=== PATIENT | female | born 1945 | race Caucasian/White ===

== ENCOUNTER 2020-01-30 12:52 | Outpatient (CLI) | payer MEDICARE, OTHER, SELFPAY ==
--- NOTE | ~2020-01-30 | US_ITS ---
EXAMINATION: US thyroid DATE: 01/30/2020 13:22 INDICATION: Nontoxic goiter TECHNIQUE: Multiple ultrasound images of the thyroid were obtained. COMPARISON: None. FINDINGS: The right thyroid lobe measures 4.0 x 1.4 x 1.3 cm. The left thyroid lobe measures 4.2 x 1.5 x 1.4 c m. There are 3 anechoic cystic or predominantly cystic nodules in the right thyroid lobe, the larges t measuring 6 mm with peripheral echogenic focus with posterior comet tailing consistent with inspiss ated colloid and a colloid cyst, all (TI-RADS 2, not suspicious, no FNA recommended). There are a cou ple nearly anechoic 5 mm spongiform nodules without internal echogenic foci in the left thyroid lobe, also TI-RADS 1. There is normal echotexture, echogenicity and vascular flow throughout the remainder of the thyroid gland. IMPRESSION: 1. A few bilateral likely benign <7 mm TI-RADS-1 nodules which do not require biopsy or further follo w-up. Reviewed, dictated and finalized at location A. IMPRESSION: 1. A few bilateral likely benign <7 mm TI-RADS-1 nodules which do not require b iopsy or further follow-up.
== END 2020-01-30 12:53 | disposition home or self-care (01) ==
PROVIDERS: PCP Internal Medicine; Visit Provider Internal Medicine Endocrinology, Diabetes & Metabolism
DX: E04.9 Nontoxic goiter, unspecified (principal)
CPT/HCPCS: 76536

== ENCOUNTER 2020-05-18 11:03 | Emergency (ER) | payer MEDICARE, OTHER, SELFPAY ==
--- NOTE | ~2020-05-18 | CT_ITS ---
EXAMINATION: CTA BRAIN/CAROTID DATE: 05/18/2020 14:52 INDICATION: Headache and neck pain post parathyroidectomy TECHNIQUE: Computed tomographic angiography (CTA) of the head and neck was performed with 100 mL Omni paque-350 intravenous contrast. Multiplanar reconstructions and maximum intensity projection 3D-recon structions of the carotid arteries and of the intracranial arteries were created by the technologist on a separate workstation. Precontrast CT of the head was also obtained. Automated exposure control and iterative reconstruction technique were employed.The dose-length product was 1576.83 mGy-cm. COMPARISON: None. FINDINGS: Carotid arteries: Amount of atherosclerotic calcification along the normal caliber aortic arch. There is 0% stenosis of the right carotid bulb relative to normal distal artery lumen diameter (NASCET criteria). There is 0 % stenosis of the left carotid bulb relative to normal distal artery lumen diameter. There is likely postoperative stranding in the soft tissues at the suprascapular notch along the inferior margin of t he thyroid, left greater than right. No abscess or hematoma. No pathologically enlarged cervical lymp hadenopathy. Mild emphysema at the upper lung zones. Head: No acute intracranial hemorrhage, acute infarction or abnormal extra axial fluid collection. Ventricl es are normal and symmetric. No mass/mass effect. No abnormally enhancing lesions identified. The orb its, paranasal sinuses and mastoid air cells are normal. Intracranial arteries: There is no hemodynamically significant stenosis in the vertebral, basilar and internal carotid arter ies. Left vertebral artery is mildly dominant. There are no aneurysms identified or hemodynamically s ignificant stenosis. The right A1 and bilateral P1 segments are patent. The left anterior cerebral ar lulu is supplied via the right A1 segment and a patent anterior to indicating artery. Cerebral arteri al arborization appears symmetric. IMPRESSION: 1. 0% stenosis of the right carotid bulb relative to normal distal artery lumen diameter (NASCET crit eria). 2. 0% stenosis of the left carotid bulb relative to normal distal artery lumen diameter. 3. Normal brain. No acute intracranial process. 4. No evident aneurysm or hemodynamically significant stenosis in the intracranial cerebral arteries. Reviewed, dictated and finalized at location A. IMPRESSION: 1. 0% stenosis of the right carotid bulb relative to normal distal artery lumen diameter (NASCET criteria). 2. 0% stenosis of the left carotid bulb relative to normal distal artery lumen diameter. 3. Normal brain. No acute intracranial process. 4. No evident aneurysm or hemodynamically significant stenosis in the intracran ial cerebral arteries.
[2020-05-18 11:16] VITALS: BP 120/57; PULSE 74; RESP 16; TEMP 36.1; O2SAT 97
--- NOTE | 2020-05-18 13:39 | ECG_ITS ---
Measurements Intervals [place] Rate: 65 P: 63 VA: 140 QRS: 62 QRSD: 89 T: 64 QT: 379 QTc: 394 Interpretive Statements SINUS RHYTHM LEFT ATRIAL ENLARGEMENT INCOMPLETE RIGHT BUNDLE BRANCH BLOCK BORDERLINE ECG Electronically Signed On 05-18-2020 14:35:11 CDT by Itz Kenney D.O.
--- NOTE | 2020-05-18 13:49 | ED.GENADULT ---
HPI - General Adult General Chief complaint: Neck Pain/Injury Stated complaint: headache, neck ache Time Seen by Provider: 05/18/20 13:11 Source: patient and family History of Present Illness HPI narrative: 74 years old white female, history of depression, anxiety hypothyroidism, status post parathyroidectomy 2 weeks ago presents with nontraumatic neck pain and stiffness started at the base of the neck all the way up to the whole head including eyes, ears and face. Started 2 days ago. Patient woke up with the symptoms 2 days ago, denies any trauma, new bed, new activity, new pillow or similar symptoms. Patient denies any fever, chills, nausea, vomiting, difficulty swallowing or breathing. Patient denies any aggravating or relieving factors, patient unable to turn her head to any directions. Related Data Home Medications Medication Instructions Recorded Confirmed bupropion HCl mg PO 05/18/20 donepezil mg 05/18/20 duloxetine mg PO 05/18/20 fentanyl 05/18/20 fluticasone propionate INTRANASAL 05/18/20 furosemide 05/18/20 hydrocodone-acetaminophen 05/18/20 levothyroxine 05/18/20 tolterodine mg PO 05/18/20 Allergies Allergy/AdvReac Type Severity Reaction Status Date / Time No Known Allergies Allergy Verified 05/18/20 11:24 Review of Systems Review of Systems: Narrative: CONSTITUTIONAL: Denies fever, chills, or sweats. EYES: Denies visual changes, redness, or discharge. ENT: Denies rhinorrhea, congestion, sore throat, or otalgia. CARDIOVASCULAR: Denies chest pain, palpitations, or edema. RESPIRATORY: Denies cough or dyspnea. GASTROINTESTINAL: Denies abdominal pain, nausea, vomiting, or diarrhea. GENITOURINARY: Denies dysuria or hematuria. SKIN: Denies rash or itching. MUSCULOSKELETAL: Denies back pain, joint pain, or myalgia. NEUROLOGIC: Denies headache, numbness, or weakness. PSYCHIATRIC: Denies anxiety or depression. [facility] Past Medical History Medical History Hypothyroid Surgical History Surgical History Surgical history unknown Social History Social History Gender identity (if verbalized by the patient): Female Exam Narrative: Exam Narrative: General appearance: Well-developed, well-nourished Skin: Normal color Head: Normocephalic, nontraumatic Eyes: Clear conjunctiva ENT: Oropharynx normal, ears normal, nose normal Neck: Generalized stiffness, no tenderness, no swelling, no mass, no lymphadenopathy, no rash, anteriorly surgical scar which is dry and clean. Chest and respiratory: Airway patent, no respiratory distress, no accessory muscle use Heart: Regular rate/rhythm Abdomen: Soft, nontender, no organomegaly, quiet bowel sounds Vascular: Normal peripheral pulses, normal capillary refill. Musculoskeletal: Normal range of motion, nontender back. Severe limited range of motion of the neck to all directions. Neurologic: Alert and oriented ?3, [employer] is normal as tested, no gross motor deficit Course Course Emergency Course: Stable Vital Signs Vital signs: Vital Signs Temperature 36.1 C L 05/18/20 11:16 Pulse Rate 74 05/18/20 11:16 Respiratory Rate 16 05/18/20 11:16 Blood Pressure 120/57 L 05/18/20 11:16 Pulse Oximetry 97 05/18/20 11:16 Temperature 36.1 C L 05/18/20 11:16 Pulse Rate 66 05/18/20 16:06 Respiratory Rate 17 05/18/20 16:06 Blood Pressure 135/64 05/18/20 16:06 Pulse Oximetry 97 05/18/20 16:06 Medical Decision Making MDM Narrative Medical decision making narrative: Neck muscular strain/sprain is my concern. Pat
[2020-05-18 14:02] VITALS: BP 132/66; PULSE 76; RESP 17; O2SAT 97
[2020-05-18] MEDS: ONDANSETRON INJ 4 MG/2 ML VIAL IV PUSH (14:02)
[2020-05-18] MEDS: MORPHINE SULFATE 4 MG/ML INJ IV PUSH (14:02)
[2020-05-18 14:17] LABS: Basophils Percent Auto 0.2 % (0.2-1.2); Eosinophils Absolute Auto 0.1 K/mm3 (0-0.3); Eosinophils Percent Auto 0.7 % (0-4.4); Hematocrit 44.7 % (37.0-47.0); Hemoglobin 14.6 g/dL (12.0-15.0); Immature Granulocyte Absolute 0.02 K/mm3 (0.00-0.031); Immature Granulocyte Percent A 0.2 % (0-0.5); Lymphocytes Absolute Auto 1.01 K/mm3 (0.9-3.2); Lymphocytes Percent Auto 12.3 % (18.3-44.2); Mean Corpuscular HGB Conc 32.7 g/dl (32-36); Mean Corpuscular Hemoglobin 31.5 pg (26-34); Mean Corpuscular Volume 96.3 fl (80-100); Mean Platelet Volume 8.8 fl (7.4-10.4); Monocytes Absolute Auto 0.7 K/mm3 (0.1-0.6); Monocytes Percent Auto 7.9 % (2.6-8.5); Neutrophils Absolute Auto 6.5 K/mm3 (1.3-6.7); Neutrophils Percent Auto 78.7 % (45.5-73.1); Platelet Count Result 200 k/mm3 (150-375); Red Blood Count 4.64 M/mm3 (4.2-5.4); Red Cell Distribution Width 12.6 % (11.5-14.5); White Blood Count 8.2 K/mm3 (4.5-10.0)
[2020-05-18 14:29] LABS: Alanine Aminotransferase 16 U/L (4-35); Alkaline Phosphatase 99 U/L (38-126); Aspartate Amino Transferase 28 U/L (14-36); Bilirubin,Total 0.4 mg/dL (0.2-1.3); Blood Urea Nitrogen 15 mg/dL (7-17); Calcium 8.7 mg/dL (8.4-10.2); Carbon Dioxide 29 mmol/L (22-30); Chloride 101 mmol/L (98-107); Estimated CRCL calculation 69 ml/min; Estimated Glomerular Filt Rate > 60; Glucose 111 mg/dL (65-105); Potassium 4.6 mmol/L (3.4-5.0); Sodium 135 mmol/L (137-145)
[2020-05-18 14:32] LABS: CRP 3.6 mg/dL (<1.0)
[2020-05-18 14:42] LABS: Erythrocyte Sedimentation Rate 18 mm/hr (0-20)
[2020-05-18 14:59] LABS: Thyroid Stimulating Hormone 0.951 uIU/mL (0.465-4.680)
[2020-05-18 16:06] VITALS: BP 135/64; PULSE 66; RESP 17; O2SAT 97
== END 2020-05-18 16:50 | disposition home or self-care (01) ==
PROVIDERS: Emergency Provider Emergency Medicine; PCP Internal Medicine
DX: M54.2 Cervicalgia (principal); E03.9 Hypothyroidism, unspecified; F41.9 Anxiety disorder, unspecified; F32.9 Major depressive disorder, single episode, unspecified; E89.2 Postprocedural hypoparathyroidism
CPT/HCPCS: 36415; 70496; 70498; 80053; 84443; 85025; 85652; 86140; 93005; 96374; 96375; 99284; J2270; J2405; Q9967

== ENCOUNTER 2021-09-28 13:03 | Outpatient (CLI) | payer MEDICARE, OTHER, SELFPAY ==
--- NOTE | ~2021-09-28 | MM_ITS ---
EXAMINATION: MM diag stephanie implant BI w paco HISTORY: Palpable lumps of the outer right breast after fall 2-3 months ago TECHNIQUE: Craniocaudal, mediolateral, and mediolateral oblique 3-D tomosynthesis images with implant displacement of the breasts were performed and synthetic 2-D images were generated. Craniocaudal, m ediolateral oblique, and mediolateral views of the breasts without implant displacement were obtained using full field digital mammography. CAD analysis was submitted and interpreted. COMPARISON: 11/19/2019, 09/18/2018, 02/12/2017, 11/02/2016, 10/26/2016 BREAST PARENCHYMAL COMPOSITION: There are scattered areas of fibroglandular density. FINDINGS: Right breast: There are innumerable new small high density masses throughout the upper outer right br east which are consistent with extravasated silicone. No definite suspicious mass, calcification, or architectural distortion are identified. There is a chronic rupture of the inferior aspect of the rig ht breast implant. Left breast: There is no evidence of suspicious mass, calcification, or architectural distortion to suggest malignancy. There has been no suspicious interval change. IMPRESSION: 1. Findings consistent with right breast implant rupture and innumerable foci of extravasated silicon e throughout the upper outer right breast accounting for the palpable abnormality. Clinical follow-up is recommended. 2. Recommend routine screening mammography in one year. BI-RADS Category 2: Benign finding(s). Reviewed, dictated and finalized at location A. TER HELPER IMPRESSION: 1. Findings consistent with right breast implant rupture and innumerable foci o f extravasated silicone throughout the upper outer right breast accounting for the palpable abnormality. Clinical follow-up is recommended. 2. Recommend routine screening mammography in one year. BI-RADS Category 2: Benign finding(s).
== END 2021-09-28 13:04 | disposition home or self-care (01) ==
LOC: ANHIMG 13:07
PROVIDERS: PCP Internal Medicine; Visit Provider Physician Assistant
DX: N63.10 Unspecified lump in the right breast, unspecified quadrant (principal); Z98.82 Breast implant status
CPT/HCPCS: 77062; 77066; G0279

== ENCOUNTER 2022-06-20 20:06 | Observation (INO) | payer MEDICARE, OTHER, SELFPAY ==
--- NOTE | ~2022-06-20 | CT_ITS ---
EXAMINATION: CT abdomen pelvis w con DATE: 06/20/2022 23:12 INDICATION: Right posterior chest and back pain. Right hip pain. TECHNIQUE: Computed tomography (CT) of the abdomen and pelvis was performed with 100 mL Omnipaque 350 intravenous contrast. Automated exposure control and iterative reconstruction technique were employe d. The dose-length product was 794.17 mGy-cm. COMPARISON: None. FINDINGS: The visualized portions of the lung bases demonstrate mild atelectasis. No pleural effusion . Partially visualized are breast implants. The heart size is normal. No pericardial effusion. There are cysts in the liver measuring up to 7 mm. There are changes of cholecystectomy. The spleen, pancre as, adrenal glands, and left kidney are normal. There are cysts in right kidney measuring up to 4 mm. There is diverticulosis of the colon without evidence of diverticulitis. There are no dilated loops of bowel. The appendix is normal. There are no pathologically enlarged lymph nodes. There is no free intraperitoneal fluid. There is severe lumbar spondylosis and mild thoracic spondylosis. There is mod erate osteoarthritis of the hips. There is a nondisplaced fracture involving right parasymphyseal pub is and right superior and inferior pubic rami. There are fractures of right 11th and 12th ribs. IMPRESSION: 1. Nondisplaced comminuted fracture involving right parasymphyseal pubis and right superior and infer ior pubic rami. 2. Fractures of right 11th and 12th ribs. Reviewed, dictated and finalized at location A. IMPRESSION: 1. Nondisplaced comminuted fracture involving right parasymphyseal pubis and ri ght superior and inferior pubic rami. 2. Fractures of right 11th and 12th ribs.
--- NOTE | ~2022-06-20 | CT_ITS ---
EXAMINATION: CT cervical spine wo con DATE: 06/20/2022 23:06 INDICATION: Head injury. TECHNIQUE: Computed tomography (CT) of the cervical spine was performed without intravenous contrast. Automated exposure control and iterative reconstruction technique were employed. The dose-length pro duct was 458.49 mGy-cm. COMPARISON: CT cervical spine 11/25/2019 FINDINGS: There is 3 degrees dextrocurvature of cervical spine. There is mild chronic height loss of C7 vertebral body. There is mildly decreased disc height at C2-C3, moderately decreased disc height a t C3-C4, and severely decreased disc height from C4-C5 through C6-C7 with endplate remodeling. The fo llowing disc levels are specifically discussed: C2-C3: There is mild bilateral uncovertebral joint osteoarthritis. There is mild bilateral facet join t osteoarthritis. There is no neural foraminal stenosis. There is no central canal stenosis. C3-C4: There is severe bilateral uncovertebral joint osteoarthritis. There is mild right and moderate left facet joint osteoarthritis. There is mild bilateral neural foraminal stenosis. There is mild ce ntral canal stenosis. C4-C5: There is severe bilateral uncovertebral joint osteoarthritis. There is mild right and moderate left facet joint osteoarthritis. There is mild bilateral neural foraminal stenosis. There is mild ce ntral canal stenosis. C5-C6: There is severe bilateral uncovertebral joint osteoarthritis. There is mild bilateral facet rambo int osteoarthritis. There is mild bilateral neural foraminal stenosis. There is mild central canal st enosis. C6-C7: There is severe bilateral uncovertebral joint osteoarthritis. There is severe bilateral facet joint osteoarthritis. There is mild left neural foraminal stenosis. There is mild central canal steno sis. C7-T1: There is no uncovertebral joint osteoarthritis. There is mild bilateral facet joint osteoarthr itis. There is no neural foraminal stenosis. There is no central canal stenosis. IMPRESSION: 1. No fracture. 2. Severe cervical spondylosis. Reviewed, dictated and finalized at location A.
--- NOTE | ~2022-06-20 | CT_ITS ---
EXAMINATION: CT brain wo con DATE: 06/20/2022 23:05 INDICATION: Head injury. TECHNIQUE: Computed tomography (CT) of the head was performed without intravenous contrast. The mA wa s adjusted according to patient size. Iterative reconstruction technique was employed. The dose-lengt h product was 605.33 mGy-cm. COMPARISON: Head CT 05/18/2020 FINDINGS: There is no intracranial hemorrhage, acute infarction, or abnormal intracranial mass lesion . There are scattered areas of low attenuation in the cerebral white matter, which is within normal l imits for the patient's age. The ventricles are normal in size. There are likely changes of ocular le ns replacement surgeries. There is mild mucosal thickening in the ethmoid sinuses. The mastoid air ce lls are normal. IMPRESSION: 1. Normal aging brain. Reviewed, dictated and finalized at location A. IMPRESSION: 1. Normal aging brain.
[2022-06-20 20:27] VITALS: BP 120/62; PULSE 65; RESP 16; TEMP 36.6; O2SAT 98
[2022-06-20 22:30] VITALS: BP 113/70; PULSE 67; RESP 15; O2SAT 100
--- NOTE | 2022-06-20 22:34 | ED.FALL ---
HPI - Fall General Chief Complaint: Fall Stated Complaint: fall, back and leg pain Time Seen by Provider: 06/20/22 22:10 Source: patient Mode of arrival: EMS Limitations: no limitations History of Present Illness HPI Narrative: Patient is a 77 y/o female who presents to the ED via EMS with c/o fall. Patient reports she was walking with her nephew earlier today when she tripped over the edge of the sidewalk, falling onto her right side, hitting her head on the ground. She is sustained a small laceration to her right outer eyebrow, denied LOC. No prodromal symptoms. No dizziness, lightheadedness, vision changes, chest pain, difficulty breathing, abdominal pain, N/V. Patient reports pain to her right inner groin/pelvic region and right mid back, along her posterior rib cage. She was able to ambulate initially after the fall, but reported she was shuffling. Pain became more severe and she had more difficulty with ROM/ambulation, which prompted her presentation. She has not taken anything for pain. Tetanus status unknown. Patient takes aspirin 81 mg daily, no other blood thinners. Related Data Home Medications Medication Instructions Recorded Confirmed bupropion HCl 300 mg 24 hr tablet, mg PO 05/18/20 extended release donepezil 10 mg tablet mg 05/18/20 duloxetine 60 mg capsule,delayed mg PO 05/18/20 release fluticasone propionate 50 intranasal 05/18/20 mcg/actuation nasal spray,suspension tolterodine 2 mg capsule,extended mg PO 05/18/20 release 24 hr dextroamphetamine-amphetamine ER 10 mg PO DAILY 06/21/22 06/21/22 10 mg 24hr capsule,extend release ezetimibe 10 mg tablet 10 mg PO DAILY 06/21/22 06/21/22 levothyroxine 50 mcg tablet 50 mcg PO 0600 06/21/22 06/21/22 (Synthroid) liothyronine 5 mcg tablet 5 mcg PO 0600 06/21/22 06/21/22 metformin 500 mg tablet,extended 500 mg PO DAILY 06/21/22 06/21/22 release 24 hr rosuvastatin 5 mg tablet 5 mg PO DAILY 06/21/22 06/21/22 topiramate 25 mg tablet 25 mg PO DAILY 06/21/22 06/21/22 Allergies Allergy/AdvReac Type Severity Reaction Status Date / Time No Known Allergies Allergy Verified 06/20/22 22:29 Review of Systems Review of Systems: CONSTITUTIONAL: Denies fever, chills, or sweats. EYES: Denies visual changes. CARDIOVASCULAR: Denies chest pain. RESPIRATORY: Denies dyspnea. GASTROINTESTINAL: Denies abdominal pain, nausea, vomiting. SKIN: Reports laceration to right outer eyebrow. MUSCULOSKELETAL: Reports pain to R inner groin/pelvis, R mid/lower back/ribs. NEUROLOGIC: Reports HI. Denies LOC, dizziness, lightheadedness, headache, numbness, or weakness. All systems reviewed & are unremarkable except as noted in HPI and below PMFSH Past Medical History Medical History (Updated 06/21/22 @ 03:09 by Stephanie Stovall PA-C) ADHD Depression Diabetes HLD (hyperlipidemia) HTN (hypertension) Hypothyroid Surgical History Surgical History (Updated 06/21/22 @ 03:03 by Stephanie Stovall PA-C) History of breast augmentation Social History Social History (Updated 06/20/22 @ 22:41 by Stephanie Stovall PA-C) Smoking status: Never smoker Second hand tobacco smoke exposure: No Alcohol intake: never Substance use: never Gender identity (if verbalized by the patient): Female Spiritual care concerns: No Exam Narrative: GENERAL: Elderly, well-nourished, non-toxic, in no acute distress. HEAD: Normocephalic, atraumatic. EYES: PERRL/EOMI, conjunctivae clear bilaterally. NECK: Supple. No adenopathy, no masses. No cervical midline spinal tenderness. RESPIRATORY: Airway patent, respirations nonlabored. Clear to auscultation bilaterally, no rales, rhonchi, wheezing. CARDIOVASCULAR: Regular rate and rhythm without murmurs, rubs, or gallops. Peripheral pulses 2+ and equal bilaterally. ABDOMINAL: Soft, nontender, nondistended, no hepatosplenomegaly. Normoactive BS. MUSCULOSKELETAL: Limited range of motion of right hip flexion and extension due to pain.
[2022-06-20] MEDS: ONDANSETRON INJ 4 MG/2 ML VIAL IV PUSH (22:44)
[2022-06-20] MEDS: MORPHINE SULFATE (*CRX) 2 MG/ML INJ IV PUSH (22:44)
[2022-06-20] MEDS: TETANUS,DIPHTHERIA,AC PERTUSSIS ADULT (0.5 ML) BOOSTRIX IM (22:45)
[2022-06-20 22:46] LABS: Basophils Percent Auto 0.4 % (0.2-1.2); Eosinophils Absolute Auto 0.1 K/mm3 (0-0.3); Eosinophils Percent Auto 0.7 % (0-4.4); Hematocrit 42.4 % (37.0-47.0); Hemoglobin 13.5 g/dL (12.0-15.0); Immature Granulocyte Absolute 0.05 K/mm3 (0.00-0.031); Immature Granulocyte Percent A 0.4 % (0-0.5); Lymphocytes Percent Auto 9.8 % (18.3-44.2); Mean Corpuscular HGB Conc 31.8 g/dl (32-36); Mean Corpuscular Hemoglobin 31.3 pg (26-34); Mean Corpuscular Volume 98.4 fl (80-100); Mean Platelet Volume 9.2 fl (7.4-10.4); Monocytes Absolute Auto 0.6 K/mm3 (0.1-0.6); Monocytes Percent Auto 5.5 % (2.6-8.5); Neutrophils Absolute Auto 9.3 K/mm3 (1.3-6.7); Neutrophils Percent Auto 83.2 % (45.5-73.1); Platelet Count Result 212 k/mm3 (150-375); Red Blood Count 4.31 M/mm3 (4.2-5.4); Red Cell Distribution Width 13.3 % (11.5-14.5); White Blood Count 11.2 K/mm3 (4.5-10.0)
[2022-06-20 22:53] LABS: Alanine Aminotransferase 19 U/L (6-35); Albumin Level 4.2 g/dL (3.5-5.1); Alkaline Phosphatase 78 U/L (38-126); Anion Gap 8 mmol/L (8-16); Aspartate Amino Transferase 28 U/L (14-36); Bilirubin,Total 0.4 mg/dL (0.2-1.3); Blood Urea Nitrogen 26 mg/dL (7-17); Calcium 8.9 mg/dL (8.4-10.2); Carbon Dioxide 28 mmol/L (22-30); Chloride 102 mmol/L (98-107); Estimated CRCL calculation 46 ml/min; Estimated Glomerular Filt Rate > 60; Glucose 106 mg/dL (65-110); Potassium 4.1 mmol/L (3.4-5.0); Sodium 138 mmol/L (137-145)
[2022-06-20 23:16] VITALS: BP 137/73; O2SAT 100
[2022-06-20 23:17] VITALS: O2SAT 100
[2022-06-20 23:41] VITALS: O2SAT 90
[2022-06-21] VITALS (16 sets, daily range): BP systolic 101–126; BP diastolic 48–69; PULSE 63–72; RESP 12–20; TEMP 36.1–36.4; O2SAT 94–100; BMI 26.4
[2022-06-21 01:39] LABS: SARS-CoV-2 RNA PCR Negative
[2022-06-21] MEDS: MORPHINE SULFATE (*CRX) 2 MG/ML INJ IV PUSH (01:47)
--- NOTE | 2022-06-21 07:51 | PCOTNOTE ---
Pt. awaiting ortho consult. Will follow.
--- NOTE | 2022-06-21 08:50 | PM.IMHP ---
H&P: HPI History of Present Illness Date/Time: 06/21/22 08:30 Chief Complaint: Ground level Fall Narrative: This very pleasant 77 year old female patient With significant past medical history of ADHD, depression, hypertension, hyperlipidemia, hypothyroidism and status post parathyroidectomy presented to the emergency room last night with complaints of sustaining a ground level fall and subsequent pain. She indicates that she was walking along the sidewalk with her nephew, tripped on the edge of the sidewalk and fell onto her right side. She did sustain a head injury, however did not have any loss of consciousness and since then has not had any nausea and/or vomiting. Patient also indicated pain to the right inner groin and the right midback. She was brought to the emergency room where she stated she was able to stand after the fall however she was shuffling. She states this was secondary to the amount of pain that she was having. In the emergency room workup was performed and was significant for findings of multiple fractures of the right pelvis With nondisplaced, comminuted fracture of the right parasymphyseal pubis and right superior and inferior pubic rami as well as fractures of the right 11th and 12th ribs. CT of the head and C-spine were both negative for any acute findings. Her labs were unremarkable. Patient was admitted to the hospital to the hospitalist service for pain management and further management of chronic health conditions while awaiting orthopedic consult. She has a Zaidi catheter to gravity. It is draining clear yellow urine. PT and OT have been consulted and we are waiting their evaluation and orthopedic evaluation and recommendations at this time. I suspect patient will need inpatient rehabilitation at least as she lives at home with her 88-year-old spouse and she indicates she has 2 teenagers her home who have not been much help. At the time of my assessment this morning patient denies any chest pain, dyspnea except when attempting to take a deep breath when she has pain in her ribs, nausea, vomiting, diarrhea, urinary complaints, headache, lightheadedness or dizziness. She reports that her vision is normal. I reviewed the patient's home medications with her. She denies any medical history of diabetes mellitus. She indicates that her doctor placed her on metformin only because of the side effects of the drug to potentially help her lose weight. She denies ever being diagnosed with diabetes mellitus. Review of Systems Review of Systems: All systems reviewed & are unremarkable except as noted in HPI and below PMFSH Past Medical History Medical History (Updated 06/21/22 @ 09:14 by MARGARITO Toscano) ADHD Depression Diabetes HLD (hyperlipidemia) HTN (hypertension) Hypothyroid Surgical History Surgical History (Updated 06/21/22 @ 09:14 by MARGARITO Toscano) History of breast augmentation Social History Social History Smoking status: Never smoker Second hand tobacco smoke exposure: No Alcohol intake: never Substance use: never Gender identity (if verbalized by the patient): Female Spiritual care concerns: No Meds Home Medications and Allergies Home Medications Medication Instructions Recorded Confirmed Type bupropion HCl 300 mg 24 hr tablet, 300 mg PO DAILY 05/18/20 06/21/22 History extended release donepezil 10 mg tablet 10 mg PO DAILY 05/18/20 06/21/22 History duloxetine 60 mg capsule,delayed 60 mg PO DAILY 05/18/20 06/21/22 History release fluticasone propionate 50 1 spray intranasal DAILY 05/18/20 06/21/22 History mcg/actuation nasal spray,suspension meloxicam 7.5 mg tablet 7.5 mg PO DAILY #20 tabs 05/18/20 06/21/22 Rx tolterodine 2 mg capsule,extended 2 mg PO DAILY 05/18/20 06/21/22 History release 24 hr dextroamphetamine-amphetamine ER 10 mg PO DAILY 06/21/22
[2022-06-21] MEDS: MORPHINE SULFATE (*CRX) 4 MG/ML INJ IV PUSH (09:30)
[2022-06-21] MEDS: MELOXICAM 7.5 MG TABLET PO (09:56)
[2022-06-21] MEDS: ROSUVASTATIN 5 MG TABLET PO (09:56)
[2022-06-21] MEDS: buPROPion HCL XL (24 HR) 150 MG TABCR 300 MG PO (09:56)
[2022-06-21] MEDS: TOPIRAMATE 25 MG TABLET PO (09:56)
[2022-06-21] MEDS: FLUTICASONE PROPIONATE 0.05% NA SPR 16 GM BTL (*BKC) 1 SPRAY NASAL (09:57)
[2022-06-21] MEDS: LEVOTHYROXINE SODIUM 50 MCG TABLET PO (09:57)
[2022-06-21] MEDS: DULoxetine HCL 60 MG CAPSULE.DR PO (09:57)
[2022-06-21] MEDS: LIOTHYRONINE SODIUM 5 MCG TABLET PO (09:57)
[2022-06-21] MEDS: EZETIMIBE 10 MG TABLET PO (09:57)
[2022-06-21] MEDS: DONEPEZIL HCL 10 MG TABLET PO (09:57)
--- NOTE | 2022-06-21 11:40 | PM.CNOR ---
Assessment and Plan Assessment and plan (1) Multiple pelvic fractures: Qualifiers: Encounter type: initial encounter Fracture alignment: with stable disruption of pelvic ring Fracture type: closed Qualified Code(s): S32.810A - Multiple fractures of pelvis with stable disruption of pelvic ring, initial encounter for closed fracture Code(s): S32.82XA - Multiple fractures of pelvis without disruption of pelvic ring, initial encounter for closed fracture Status: Acute (2) Rib fractures: Qualifiers: Encounter type: initial encounter Fracture type: closed Laterality: right Qualified Code(s): S22.41XA - Multiple fractures of ribs, right side, initial encounter for closed fracture Code(s): S22.49XA - Multiple fractures of ribs, unspecified side, initial encounter for closed fracture Status: Acute Plan 77-year-old female with stable parasymphyseal pubis and right superior and inferior pubic rami fractures. She will likely need to use a walker for about 6-8 weeks to take stress off of the lower extremities and allow the fractures to heal. She is aware that she can be weight-bearing as tolerated. She has anti-inflammatories to take for pain but can also supplement with Tylenol as needed. Plan to see her in the office in 1 month for new x-ray. Rib fractures will be treated with supportive care and analgesics. Continue to encourage incentive spirometer usage. She seems very eager to progress with her care. She likely could go home pending PT/OT evaluation with a walker. Following. History of Present Illness HPI Consult date: 06/21/22 Chief complaint: R pelvic fractures, unable to ambulate, R rib fx Narrative: 77-year-old female with neck pain and right-sided back and pelvic pain after a ground level fall yesterday evening. CT of the head and cervical spine in the emergency room were negative for any acute findings. However, she did sustain a nondisplaced, comminuted fracture of the right parasymphyseal pubis and right superior and inferior pubic rami as well as fractures of the right 11th and 12th ribs. She denies any chest pain or shortness of breath. She is primarily dealing with pain with attempts at getting in and out of bed. Review of Systems Constitutional: Constitutional: Reports as per [facility] Past Medical History Medical History ADHD Depression Diabetes HLD (hyperlipidemia) HTN (hypertension) Hypothyroid Surgical History Surgical History History of breast augmentation Social History Social History Smoking status: Never smoker Second hand tobacco smoke exposure: No Alcohol intake: never Substance use: never Gender identity (if verbalized by the patient): Female Spiritual care concerns: No Meds Home Medications and Allergies Home Medications Medication Instructions Recorded Confirmed Type bupropion HCl 300 mg 24 hr tablet, 300 mg PO DAILY 05/18/20 06/21/22 History extended release donepezil 10 mg tablet 10 mg PO DAILY 05/18/20 06/21/22 History duloxetine 60 mg capsule,delayed 60 mg PO DAILY 05/18/20 06/21/22 History release fluticasone propionate 50 1 spray intranasal DAILY 05/18/20 06/21/22 History mcg/actuation nasal spray,suspension meloxicam 7.5 mg tablet 7.5 mg PO DAILY #20 tabs 05/18/20 06/21/22 Rx tolterodine 2 mg capsule,extended 2 mg PO DAILY 05/18/20 06/21/22 History release 24 hr dextroamphetamine-amphetamine ER 10 mg PO DAILY 06/21/22 06/21/22 History 10 mg 24hr capsule,extend release ezetimibe 10 mg tablet 10 mg PO DAILY 06/21/22 06/21/22 History levothyroxine 50 mcg tablet [place] [address]/21/22 06/21/22 History (Synthroid) liothyronine 5 mcg tablet 5 [place] [address]/21/22 06/21/22 History metformin 500 mg tablet,extended 500 mg PO
[2022-06-21] MEDS: metFORMIN HCL XR 500 MG TAB.SR.24H PO (16:39)
[2022-06-22 05:59] VITALS: BP 118/62; PULSE 77; RESP 18; TEMP 36.1; O2SAT 93
[2022-06-22] MEDS: LIOTHYRONINE SODIUM 5 MCG TABLET PO (06:00)
[2022-06-22] MEDS: LEVOTHYROXINE SODIUM 50 MCG TABLET PO (06:00)
[2022-06-22 07:12] LABS: Basophils Percent Auto 0.4 % (0.2-1.2); Eosinophils Absolute Auto 0.2 K/mm3 (0-0.3); Eosinophils Percent Auto 2.2 % (0-4.4); Hematocrit 39.6 % (37.0-47.0); Hemoglobin 12.5 g/dL (12.0-15.0); Immature Granulocyte Absolute 0.02 K/mm3 (0.00-0.031); Immature Granulocyte Percent A 0.3 % (0-0.5); Lymphocytes Absolute Auto 1.22 K/mm3 (0.9-3.2); Lymphocytes Percent Auto 16.7 % (18.3-44.2); Mean Corpuscular HGB Conc 31.6 g/dl (32-36); Mean Corpuscular Hemoglobin 31.2 pg (26-34); Mean Corpuscular Volume 98.8 fl (80-100); Mean Platelet Volume 9.5 fl (7.4-10.4); Monocytes Absolute Auto 0.7 K/mm3 (0.1-0.6); Monocytes Percent Auto 9.4 % (2.6-8.5); Neutrophils Absolute Auto 5.2 K/mm3 (1.3-6.7); Platelet Count Result 186 k/mm3 (150-375); Red Blood Count 4.01 M/mm3 (4.2-5.4); Red Cell Distribution Width 13.4 % (11.5-14.5); White Blood Count 7.3 K/mm3 (4.5-10.0)
[2022-06-22 07:21] LABS: Alanine Aminotransferase 14 U/L (6-35); Albumin Level 3.4 g/dL (3.5-5.1); Alkaline Phosphatase 66 U/L (38-126); Anion Gap 6 mmol/L (8-16); Aspartate Amino Transferase 21 U/L (14-36); Bilirubin,Total 0.3 mg/dL (0.2-1.3); Blood Urea Nitrogen 19 mg/dL (7-17); Calcium 8.5 mg/dL (8.4-10.2); Carbon Dioxide 26 mmol/L (22-30); Chloride 103 mmol/L (98-107); Estimated CRCL calculation 46 ml/min; Estimated Glomerular Filt Rate > 60; Glucose 108 mg/dL (65-110); Magnesium 2.3 mg/dL (1.6-2.3); Potassium 3.9 mmol/L (3.4-5.0); Sodium 135 mmol/L (137-145)
[2022-06-22 08:00] VITALS: O2SAT 96
[2022-06-22] MEDS: ROSUVASTATIN 5 MG TABLET PO (08:36)
[2022-06-22] MEDS: ENOXAPARIN 40 MG/0.4 ML SYRINGE SUB-Q (08:36)
[2022-06-22] MEDS: DULoxetine HCL 60 MG CAPSULE.DR PO (08:36)
[2022-06-22] MEDS: buPROPion HCL XL (24 HR) 150 MG TABCR 300 MG PO (08:36)
[2022-06-22] MEDS: EZETIMIBE 10 MG TABLET PO (08:36)
[2022-06-22] MEDS: MELOXICAM 7.5 MG TABLET PO (08:36)
[2022-06-22] MEDS: DONEPEZIL HCL 10 MG TABLET PO (08:37)
[2022-06-22] MEDS: TOPIRAMATE 25 MG TABLET PO (08:37)
[2022-06-22] MEDS: FLUTICASONE PROPIONATE 0.05% NA SPR 16 GM BTL (*BKC) 1 SPRAY NASAL (08:37)
--- NOTE | 2022-06-22 10:00 | PM.DS ---
DS: Admitting Diagnosis Discharge Date 06/22/22 1000 Admitting Diagnosis Pelvic fracture, mechanical fall DS: Discharge Diagnosis Discharge Diagnosis (1) Multiple pelvic fractures: Qualifiers: Encounter type: initial encounter Fracture alignment: with stable disruption of pelvic ring Fracture type: closed Qualified Code(s): S32.810A - Multiple fractures of pelvis with stable disruption of pelvic ring, initial encounter for closed fracture Code(s): S32.82XA - Multiple fractures of pelvis without disruption of pelvic ring, initial encounter for closed fracture Status: Acute Assessment and Plan: - Awaiting orthopedic consult. We do appreciate their recommendations. - PT and OT have been consulted. - P.r.n. pain medications and antiemetics. - Initiate Lovenox 40 mg subQ daily as patient has high risk of developing DVT in the current setting of multiple pelvic fractures. - maintain Zaidi catheter to gravity with routine Zaidi care per protocol. - Suspect patient will require inpatient rehabilitation, we do appreciate care coordination assistance with discharge planning. (2) Rib fractures: Qualifiers: Encounter type: initial encounter Fracture type: closed Laterality: right Qualified Code(s): S22.41XA - Multiple fractures of ribs, right side, initial encounter for closed fracture Code(s): S22.49XA - Multiple fractures of ribs, unspecified side, initial encounter for closed fracture Status: Acute Assessment and Plan: - Initiate incentive spirometry - p.r.n. pain medications and antiemetics. - Monitor vital signs including oxygen saturation. - Patient educated on how to splint ribs for coughing and sneezing. However it was also relayed to the patient that it is very important to continue deep breathing to prevent a pneumonia. (3) Accidental fall: Qualifiers: Encounter type: initial encounter Qualified Code(s): W19.XXXA - Unspecified fall, initial encounter Code(s): W19.XXXA - Unspecified fall, initial encounter Status: Acute Assessment and Plan: - Ground level fall - initiate fall precautions - see plans 1 and 2 above. (4) Closed head injury: Code(s): S09.90XA - Unspecified injury of head, initial encounter Status: Acute Assessment and Plan: - accidental secondary to ground level fall from tripping over a curb - CT of head and C-spine are negative for any acute findings. - Neuro checks ordered q.4 hours for next 24 hours and then may be discontinued. (5) Laceration of eyebrow without complication: Qualifiers: Encounter type: initial encounter Laterality: right Qualified Code(s): S01.111A - Laceration without foreign body of right eyelid and periocular area, initial encounter Code(s): S01.119A - Laceration without foreign body of unspecified eyelid and periocular area, initial encounter Status: Acute Assessment and Plan: - Laceration repair to the right restoration. Wound appears well approximated without any drainage, signs of infection. There is surrounding ecchymosis. Sutures intact. - Tetanus was updated in the emergency room. - Sutures to be removed in 7-10 days. - P.r.n. pain medications. (6) Depression: Code(s): F32.A - Depression, unspecified Status: Chronic Assessment and Plan: - Continue Wellbutrin and Cymbalta. - Patient does not appear to be depressed, and has a good mind set for recovery of this current injury. - Denies SI/HI. (7) ADHD: Code(s): F90.9 - Attention-deficit hyperactivity disorder, unspecified type Status: Chronic Assessment and Plan: - Continue Adderall (8) HLD (hyperlipidemia): Code(s): E78.5 - Hyperlipidemia, unspecified Status: Chronic Assessment and Plan: - continue Crestor 5 mg daily and Zetia 10 mg daily. - Heart healthy diet. (9) HTN (hyper
[2022-06-22] MEDS: SENNA/DOCUSATE SODIUM TABLET 1 TAB PO (12:10)
[2022-06-22] MEDS: KETOROLAC 15 MG/ML VIAL (*BKC) IV PUSH (12:11)
[2022-06-22] MEDS: polyethylene glycoL 3350 17 GM POWD.PACK PO (12:12)
--- NOTE | 2022-06-22 12:52 | PM.PNORT ---
Progress Note: A&P Assessment and Plan (1) Multiple pelvic fractures: Qualifiers: Encounter type: initial encounter Fracture alignment: with stable disruption of pelvic ring Fracture type: closed Qualified Code(s): S32.810A - Multiple fractures of pelvis with stable disruption of pelvic ring, initial encounter for closed fracture Code(s): S32.82XA - Multiple fractures of pelvis without disruption of pelvic ring, initial encounter for closed fracture Status: Acute (2) Rib fractures: Qualifiers: Encounter type: initial encounter Fracture type: closed Laterality: right Qualified Code(s): S22.41XA - Multiple fractures of ribs, right side, initial encounter for closed fracture Code(s): S22.49XA - Multiple fractures of ribs, unspecified side, initial encounter for closed fracture Status: Acute Plan 77-year-old female with stable parasymphyseal pubis and right superior and inferior pubic rami fractures.? She will use a walker for about 6-8 weeks to take stress off of the lower extremities.? She is aware that she can be weight-bearing as tolerated.? Plan to see her in the office in 1 month for new x-ray, this has been scheduled for 07-20-2022 and she is aware of this Rib fractures will be treated with supportive care and analgesics.? Continue to encourage incentive spirometer usage. Plan to discharge to rehab facility for continued PT/OT. Subjective Subjective Date/Time Seen: 06/22/22 12:52 Principal diagnosis: R pelvic fractures, unable to ambulate, R rib fx Interval history: 69-year-old female with multiple stable right pelvic fractures and right rib fractures. She states she is pain free while laying in the bed but has difficulty while using a walker. She is participating well with PT/OT. Uneventful overnight stay. Review of Systems Constitutional: Constitutional: Reports as per HPI Exam Const: General: comfortable and no acute distress Resp: Effort & Inspection: normal respiratory effort GI: Inspection: non-distended Back/Spine/Pelvis: Pelvis: tenderness over symphysis pubis and Other pelvic findings (Pain into the right groin) Skin: General skin exam: normal color Extrem: Other: No appreciable swelling or ecchymosis to distal lower extremities.? Neurovascular status is intact. Psych: Mental Status: mental status grossly normal Objective Data Vital Signs Vital Signs: Vital Signs - 24 hr 06/21/22 13:20 06/21/22 14:00 06/21/22 22:00 Temperature 97.5 F L 97.5 F L Pulse Rate 63 70 Respiratory Rate 18 16 Blood Pressure 104/56 L 101/63 Pulse Oximetry 96 95 Oxygen Delivery Room Air 06/22/22 05:59 06/22/22 08:00 Temperature 97 F L Pulse Rate 77 Respiratory Rate 18 Blood Pressure 118/62 Pulse Oximetry 93 96 Oxygen Delivery Room Air Intake/Output Intake/Output: Intake & Output 06/19/22 06/20/22 06/21/22 06/22/22 23:59 23:59 23:59 23:59 Intake Total 1720 460 Output Total 850 900 Balance 870 -440 Meds/Results Medications: Active Medications Generic Name Dose Route Start Last Admin Trade Name Freq PRN Reason Stop Dose Admin Bupropion HCl 300 mg 06/21/22 09:00 06/22/22 08:36 Bupropion Hcl Xl (24 Hr) 150 Mg Tabcr PO 300 mg DAILY SAMMY Administration Donepezil HCl 10 mg 06/21/22 09:00 06/22/22 08:37 Donepezil Hcl 10 Mg Tablet PO 10 mg DAILY SAMMY Administration Duloxetine HCl 60 mg 06/21/22 09:00 06/22/22 08:36 Duloxetine Hcl 60 Mg Capsule.Dr PO 60 mg DAILY SAMMY Administration Ezetimibe 10 mg 06/21/22 09:00 06/22/22 08:36 Ezetimibe 10 Mg Tablet PO 10 mg DAILY SAMMY Administration Enoxaparin Sodium 40 mg 06/22/22 09:00 06/22/22 08:36 Enoxaparin 40 Mg/0.4 Ml Syringe SUB-Q 40 mg DAILY SAMMY Administration Fluticasone Propionate 1 spray 06/21/22 09:00 06/22/22 08:37 Fluticasone Propionate 0.05% Na Spr 16 Gm Btl (*Bkc) NASAL 1 spray DAILY SAMMY Administration
== END 2022-06-22 14:40 ==
LOC: ANHED 06-21 01:00 → ANH3MEDSUR 06-21 01:49
PROVIDERS: Physician Assistant; Admitting Provider Internal Medicine; Emergency Provider Emergency Medicine; PCP Internal Medicine; Visit Provider Nurse Practitioner Adult Health
DX: S32.82XA Multiple fractures of pelvis without disruption of pelvic ring, initial encounter for closed fracture (principal); S22.41XA Multiple fractures of ribs, right side, initial encounter for closed fracture; S01.111A Laceration without foreign body of right eyelid and periocular area, initial encounter; S09.90XA Unspecified injury of head, initial encounter; W01.198A Fall on same level from slipping, tripping and stumbling with subsequent striking against other object, initial encounter; Y93.01 Activity, walking, marching and hiking; Z23 Encounter for immunization; Y92.480 Sidewalk as the place of occurrence of the external cause; R10.30 Lower abdominal pain, unspecified; M54.89 Other dorsalgia; F32.A Depression, unspecified; F90.9 Attention-deficit hyperactivity disorder, unspecified type; E78.5 Hyperlipidemia, unspecified; I10 Essential (primary) hypertension; E89.2 Postprocedural hypoparathyroidism; E03.9 Hypothyroidism, unspecified; M47.812 Spondylosis without myelopathy or radiculopathy, cervical region; R07.81 Pleurodynia; E11.9 Type 2 diabetes mellitus without complications; D72.829 Elevated white blood cell count, unspecified; Z20.822 Contact with and (suspected) exposure to COVID-19; Z79.84 Long term (current) use of oral hypoglycemic drugs; Z79.52 Long term (current) use of systemic steroids; Z79.899 Other long term (current) drug therapy
CPT/HCPCS: 12011; 36415; 70450; 72125; 74177; 80053; 83735; 85025; 90471; 90715; 96372; 96374; 96375; 96376; 97161; 97165; 97535; 99285; A9270; C9803; G0378; J1650; J1885; J2270; J2405; Q9967; U0003; U0005